=== PATIENT | male | born 1990 | race African-American/Black ===

== ENCOUNTER 2019-02-09 14:43 | Emergency (ER) | payer MEDICAID ==
[~2019-02-09] VITALS: Ht 182.9 cm; Wt 73.0 kg
[2019-02-09] MEDS ORDERED: KETOROLAC 30MG/ML VIAL IM STA (15:51)
[2019-02-09 16:16] LABS: BASOPHILS % 0.6 % (0.0-2.0); EOSINOPHILS % 0.9 % (0.0-5.0); HEMATOCRIT. 43.4 % (42.0-52.0); HEMOGLOBIN. 14.9 g/dL (14.0-18.0); LYMPHOCYTES % 19.9 % (20.0-50.0); MEAN CORPUSCULAR HEMOGLOBIN 32.2 pg (28.0-32.0); MEAN CORPUSCULAR VOLUME 93.7 fL (80.0-94.0); MEAN PLATELET VOLUME 8.7 fl (7.4-10.4); MONOCYTES % 10.3 % (2.0-8.0); NEUTROPHILS % 68.3 % (40.0-76.0); PLATELET 256 x1000/uL (130-400); RED BLOOD CELL COUNT 4.63 mill/uL (4.7-6.1)
[2019-02-09 16:22] LABS: CHLORIDE 106 mEq/L (98-107)
[2019-02-09] MEDS ORDERED: LIDOCAINE HCL/EPINEPHRINE 1%-EPI 1:100,000 30 ML VIAL INFIL ONE (16:30)
[2019-02-09] MEDS ORDERED: LIDOCAINE HCL/EPINEPHRINE 1%-EPI 1:100,000 20 ML VIAL INFIL NR (16:45)
[2019-02-09] MEDS ORDERED: ACETAMINOPHEN 500MG TABLET PO ONE (17:15)
[2019-02-09 17:36] VITALS: BP 111/66
== END 2019-02-09 17:36 | disposition home or self-care (01) ==
LOC: ER 14:43
DX: K61.0 Anal abscess (principal); F12.10 Cannabis abuse, uncomplicated
CPT/HCPCS: 10060; 36415; 80053; 85025; 96372; 99283; J1885; J3490; Z7610

== ENCOUNTER 2020-10-09 17:51 | Emergency (ER) | payer MEDICAID ==
[~2020-10-09] VITALS: Ht 182.9 cm; Wt 74.0 kg
[2020-10-09 17:52] VITALS: BP 118/70
[2020-10-09] MEDS ORDERED: IBUPROFEN 800MG TABLET PO ONE (18:15)
[2020-10-09] MEDS ORDERED: ACETAMINOPHEN 500MG TABLET PO ONE (18:15)
== END 2020-10-09 20:44 | disposition home or self-care (01) ==
LOC: ER 17:51
DX: S29.012A Strain of muscle and tendon of back wall of thorax, initial encounter (principal); V49.69XA Unspecified car occupant injured in collision with other motor vehicles in traffic accident, initial encounter; Y93.89 Activity, other specified; Y92.488 Other paved roadways as the place of occurrence of the external cause
CPT/HCPCS: 71045; 93005; 99283

== ENCOUNTER 2021-06-11 02:55 | Emergency (ER) | payer MEDICAID, OTHER ==
[~2021-06-11] VITALS: Ht 180.3 cm; Wt 73.0 kg
[2021-06-11] MEDS ORDERED: BACITRACIN ZINC OINT UDPKT TOP ONE (03:45)
[2021-06-11] MEDS ORDERED: IBUPROFEN 600MG TABLET PO ONE (03:45)
[2021-06-11] MEDS ORDERED: LIDOCAINE HCL/EPINEPHRINE 1%-EPI 1:100,000 20 ML VIAL INFIL ONE (03:45)
[2021-06-11] MEDS ORDERED: ACETAMINOPHEN 325MG TABLET PO ONE (03:45)
[2021-06-11] MEDS ORDERED: SULF1TAB48 MT (04:05)
[2021-06-11] MEDS ORDERED: ACET-2708 MT (04:05)
[2021-06-11] MEDS ORDERED: NAPR-1176 MT (04:05)
[2021-06-11 04:28] VITALS: BP 130/78
== END 2021-06-11 04:32 | disposition home or self-care (01) ==
LOC: ER 02:55
DX: L02.31 Cutaneous abscess of buttock (principal); F12.10 Cannabis abuse, uncomplicated; Z79.899 Other long term (current) drug therapy
CPT/HCPCS: 10060; 99283; J3490

== ENCOUNTER 2022-07-02 14:23 | Emergency (ER) | payer MEDICAID, OTHER ==
[~2022-07-02] VITALS: Ht 177.8 cm; Wt 86.0 kg
[~2022-07-02 14:23] MED LIST: ACET-2708 MT; NAPR-1176 MT; SULF1TAB48 MT
[2022-07-02 14:32] VITALS: BP 112/74
[2022-07-02] MEDS ORDERED: SULF1TAB48 MT (18:40)
[2022-07-02] MEDS ORDERED: DOXY100C5 MT (18:40)
[2022-07-02] MEDS ORDERED: IBUP-2029 MT (18:40)
[2022-07-02] MEDS ORDERED: IBUPROFEN 600MG TABLET PO ONE (18:45)
[2022-07-02] MEDS ORDERED: SULFAMETHOXAZOLE/TRIMETHOPRIM 800/160MG TABLET PO ONE (18:45)
== END 2022-07-02 18:53 | disposition home or self-care (01) ==
LOC: ER 14:23
DX: L02.31 Cutaneous abscess of buttock (principal); F12.10 Cannabis abuse, uncomplicated; Z13.9 Encounter for screening, unspecified
CPT/HCPCS: 99283

== ENCOUNTER 2023-01-15 12:31 | Emergency (ER) | payer MEDICAID, OTHER ==
[~2023-01-15] VITALS: Ht 180.3 cm; Wt 78.0 kg
[~2023-01-15 12:31] MED LIST changes: +DOXY100C5 MT; +IBUP-2029 MT
[2023-01-15 12:35] VITALS: BP 142/104
[2023-01-15 18:08] LABS: BASOPHILS % 0.6 % (0.0-2.0); EOSINOPHILS % 1.6 % (0.0-5.0); HEMATOCRIT. 46.9 % (42.0-52.0); HEMOGLOBIN. 16.2 g/dL (14.0-18.0); LYMPHOCYTES % 38.5 % (20.0-50.0); MEAN CORPUSCULAR HEMOGLOBIN 32.5 pg (28.0-32.0); MEAN CORPUSCULAR VOLUME 93.8 fL (80.0-94.0); MEAN PLATELET VOLUME 8.7 fl (7.4-10.4); MONOCYTES % 8.6 % (2.0-8.0); NEUTROPHILS % 50.7 % (40.0-76.0); PLATELET 279 x1000/uL (130-400); RED CELL DISTRIBUTION WIDTH 13.1 % (11.6-14.6)
[2023-01-15 18:14] LABS: CHLORIDE 99 mEq/L (98-107); INR 1.1; PROTHROMBIN TIME 11.4 sec (9.6-11.0)
[2023-01-15] MEDS: LORAZEPAM 0.5MG TABLET PO ONE ×2 (19:03→19:10)
[2023-01-15] MEDS ORDERED: FAMO-135 MT (19:20)
== END 2023-01-15 19:15 | disposition home or self-care (01) ==
LOC: ER 12:38
DX: R07.89 Other chest pain (principal); R00.0 Tachycardia, unspecified; R11.2 Nausea with vomiting, unspecified; F12.10 Cannabis abuse, uncomplicated; Z79.899 Other long term (current) drug therapy
CPT/HCPCS: 36415; 71045; 80053; 83690; 84484; 85025; 85379; 85610; 93005; 99285; Z7610

== ENCOUNTER 2023-12-11 17:49 | Emergency (ER) | payer MEDICAID, OTHER ==
[~2023-12-11] VITALS: Ht 182.9 cm; Wt 81.0 kg
[~2023-12-11 17:49] MED LIST changes: +FAMO-135 MT
[2023-12-11 18:03] VITALS: O2SAT 100
[2023-12-11] MEDS ORDERED: MAGNESIUM/ALUMINUM HYDROXIDE/SIMETHICONE 30ML UDC PO ONE (19:00)
[2023-12-11] MEDS: SODIUM CHLORIDE 0.9% 100 ML IV ONE (19:00)
[2023-12-11] MEDS ORDERED: FAMOTIDINE 20MG/2ML VIAL IV ONE (19:00)
[2023-12-11 20:10] LABS: BASOPHILS % 0.6 % (0.0-2.0); EOSINOPHILS % 0.8 % (0.0-5.0); HEMATOCRIT. 50.2 % (42.0-52.0); HEMOGLOBIN. 17.1 g/dL (14.0-18.0); LYMPHOCYTES % 25.5 % (20.0-50.0); MEAN CORPUSCULAR HEMOGLOBIN 32.8 pg (28.0-32.0); MEAN CORPUSCULAR HGB CONC 34.1 g/dL (31.0-37.0); MEAN CORPUSCULAR VOLUME 96.1 fL (80.0-94.0); MEAN PLATELET VOLUME 9.6 fl (7.4-10.4); NEUTROPHILS % 61.1 % (40.0-76.0); PLATELET 339 x1000/uL (130-400); RED BLOOD CELL COUNT 5.23 mill/uL (4.7-6.1); RED CELL DISTRIBUTION WIDTH 13.9 % (11.6-14.6); WHITE BLOOD COUNT 6.8 x1000/uL (4.5-11.0)
[2023-12-11 20:25] LABS: ALANINE AMINOTRANSFERASE 41 IU/L (10-49); ALBUMIN 5.9 g/dL (3.2-4.8); ASPARTATE AMINOTRANSFERASE 34 IU/L (<34); CALCIUM 10.7 mg/dL (8.7-10.4); CARBON DIOXIDE 23 mEq/L (21-32); CHLORIDE 98 mEq/L (98-107); CREATININE 1.5 mg/dL (0.6-1.3); GLUCOSE 110 mg/dL (70-105); POTASSIUM 3.2 mEq/L (3.5-5.1); SODIUM 136 mEq/L (136-145); UREA NITROGEN BLOOD 38 mg/dL (9-23)
[2023-12-11] MEDS: ONDANSETRON HCL 4MG/2ML INJ IV ONE (20:36)
[2023-12-11] MEDS: FAMOTIDINE 20MG/2ML VIAL IV NR (20:51)
[2023-12-11] MEDS: MAGNESIUM/ALUMINUM HYDROXIDE/SIMETHICONE 30ML UDC PO NR (20:51)
[2023-12-11] MEDS: HALOPERIDOL LACTATE 5MG/ML VIAL IM ONE (21:28)
[2023-12-11] MEDS: ACETAMINOPHEN 325MG TABLET PO ONE (21:28)
[2023-12-11] MEDS: SODIUM CHLORIDE 0.9% 1,000 ML IV ONE (22:05)
[2023-12-11] MEDS ORDERED: ONDA4TAB11 PO (22:30)
[2023-12-11] MEDS ORDERED: FAMO-135 PO (22:30)
[2023-12-11 22:42] VITALS: BP 140/70; PULSE 100; RESP 20; TEMP 98.2
== END 2023-12-11 22:43 | disposition home or self-care (01) ==
LOC: ER 17:49
DX: R11.2 Nausea with vomiting, unspecified (principal); R10.13 Epigastric pain; F12.10 Cannabis abuse, uncomplicated; Z79.899 Other long term (current) drug therapy
CPT/HCPCS: 80053; 83690; 85025; 36415; 93005; 96361; 96372; 96374; 96375; 99284; J3490; J1630; J2405; J7050; J7030; Z7610 ×2